=== PATIENT | male | born 1960 | race Two or more races ===

== ENCOUNTER 2019-10-13 12:25 | Emergency (ER) | payer MEDICAID ==
[~2019-10-13] VITALS: Ht 182.9 cm; Wt 67.0 kg
[2019-10-13] MEDS ORDERED: KETOROLAC 30MG/ML VIAL IV ONE (13:00)
[2019-10-13] MEDS ORDERED: MIDAZOLAM HCL 2 MG/2 ML VIAL IV ONE (13:00)
[2019-10-13 14:19] LABS: BASOPHILS % 2.7 % (0.0-2.0); EOSINOPHILS % 2.1 % (0.0-5.0); HEMATOCRIT. 40.3 % (42.0-52.0); HEMOGLOBIN. 13.7 g/dL (14.0-18.0); LYMPHOCYTES % 48.1 % (20.0-50.0); MEAN CORPUSCULAR HEMOGLOBIN 33.4 pg (28.0-32.0); MEAN CORPUSCULAR VOLUME 97.9 fL (80.0-94.0); MEAN PLATELET VOLUME 7.8 fl (7.4-10.4); MONOCYTES % 9.9 % (2.0-8.0); NEUTROPHILS % 37.2 % (40.0-76.0); PLATELET 205 x1000/uL (130-400); RED BLOOD CELL COUNT 4.12 mill/uL (4.7-6.1); RED CELL DISTRIBUTION WIDTH 13.9 % (11.6-14.6)
[2019-10-13 14:22] LABS: CHLORIDE 107 mEq/L (98-107)
[2019-10-13 14:27] LABS: PARTIAL THROMBOPLASTIN TIME 25.5 sec (23.4-31.0); PROTHROMBIN TIME 10.6 sec (9.6-11.0)
[2019-10-13 14:46] LABS: CLARITY URINE CLOUDY (CLEAR); COLOR URINE YELLOW (YELLOW); KETONES URINE NEGATIVE (NEGATIVE); LEUKOCYTE ESTERASE URINE NEGATIVE (NEGATIVE); NITRITE URINE NEGATIVE (NEGATIVE); OCCULT BLOOD URINE NEGATIVE (NEGATIVE); PROTEIN URINE 2+ (NEGATIVE); SPECIFIC GRAVITY URINE 1.016 (1.005-1.030); UROBILINOGEN URINE 0.2 E.U./dL (0.2-1.0)
[2019-10-13 15:31] LABS: *AMPHETAMINES SCREEN URINE PRESUMTIVE POSITIVE (NEGATIVE); *BARBITURATES SCREEN URINE NEGATIVE (NEGATIVE); *BENZODIAZEPINES SCREEN URINE NEGATIVE (NEGATIVE); *COCAINE SCREEN URINE PRESUMTIVE POSITIVE (NEGATIVE); CANNABINOID URINE SCREEN PRESUMTIVE POSITIVE (NEGATIVE); METHADONE URINE SCREEN NEGATIVE (NEGATIVE); OPIATES URINE SCREEN NEGATIVE (NEGATIVE); PHENCYCLIDINE URINE SCREEN NEGATIVE (NEGATIVE)
[2019-10-13 16:05] VITALS: BP 158/97
== END 2019-10-13 17:07 | disposition home or self-care (01) ==
LOC: ER 12:25
DX: K40.31 Unilateral inguinal hernia, with obstruction, without gangrene, recurrent (principal); R03.0 Elevated blood-pressure reading, without diagnosis of hypertension; F17.210 Nicotine dependence, cigarettes, uncomplicated; Z71.6 Tobacco abuse counseling
CPT/HCPCS: 36415; 80053; 80305; 81003; 83605; 85025; 85610; 85730; 93005; 96374; 96375; 99284; 99406; J1885; J2250

== ENCOUNTER 2019-10-14 11:18 | Emergency (ER) | payer MEDICAID ==
[~2019-10-14] VITALS: Ht 185.4 cm; Wt 76.0 kg
[2019-10-14 11:23] VITALS: BP 173/107
== END 2019-10-15 11:29 | disposition left against medical advice (07) ==
LOC: ER 11:18
DX: K46.9 Unspecified abdominal hernia without obstruction or gangrene (principal); R00.0 Tachycardia, unspecified
CPT/HCPCS: 93005; 99281